=== PATIENT | male | born 1975 | race Caucasian/White ===

== ENCOUNTER 2016-06-07 12:20 | Emergency (ER) | payer MEDICARE ==
[~2016-06-07] VITALS: Ht 172.7 cm; Wt 86.4 kg
[~2016-06-07 12:20] MED LIST: CYMBALTA 20MG20 MG PO; PERCOCET 325 MG1 TA2 PO; SEROQUEL50 MG PO; ZOFRAN ODT8 MG PO
[2016-06-07 12:26] VITALS: TEMP 97.7
[2016-06-07 13:33] LABS: BASO # 0.2 (0.0-0.2); BASO % 1.4 % (0.0-2.0); EOS # 0.5 (0.0-0.7); EOS % 4.4 % (0-4.0); GRAN # 7.3 (1.4-6.5); GRAN % 68.6 % (42.2-75.2); HEMATOCRIT 40.5 % (42.0-52.0); LYMPH # 1.8 (1.2-3.4); LYMPH % 16.6 % (20.0-51.0); MEAN CELL VOLUME 96 fl (80.0-100.0); MEAN CORPUSCULAR HEMOGLOBIN 33 pg (27.0-31.0); MEAN CORPUSCULAR HGB CONC 35 g/dl (33.0-37.0); MEAN PLATELET VOLUME 9.9 fl (7.4-10.4); MONO # 0.9 (0.1-0.6); MONO % 8.7 % (1.7-9.3); PLATELET COUNT 415 K/mm3 (130-400); RED BLOOD COUNT 4.21 M/mm3 (4.20-5.60); REDCELL DISTRIBUTION WIDTH-CV 15.9 % (11.5-14.5); WHITE BLOOD COUNT 10.7 K/mm3 (4.8-10.8)
[2016-06-07 15:05] VITALS: BP 122/80; PULSE 78
[2016-06-07 15:11] LABS: ERYTHROCYTE SEDIMENTATION RATE 2 mm/hr (0-15)
== END 2016-06-07 15:07 | disposition home or self-care (01) ==
LOC: COL.ER 12:20
PROVIDERS: Physician Assistant
DX: G89.29 Other chronic pain (principal); M25.552 Pain in left hip
CPT/HCPCS: J1170; J2550

== ENCOUNTER 2016-07-04 09:00 | Emergency (ER) | payer MEDICARE ==
[~2016-07-04] VITALS: Ht 172.7 cm; Wt 84.1 kg
[2016-07-04 09:05] VITALS: BP 125/71; PULSE 91; TEMP 97.8
[2016-07-04] MEDS ORDERED: NORCO 325 MG-51 TAB PO ×2 (09:08→10:25)
[2016-07-04 10:07] LABS: BASO # 0.1 (0.0-0.2); BASO % 1.2 % (0.0-2.0); EOS # 0.4 (0.0-0.7); EOS % 3.6 % (0-4.0); GRAN # 5.4 (1.4-6.5); GRAN % 54.8 % (42.2-75.2); HEMATOCRIT 38.3 % (42.0-52.0); HEMOGLOBIN 13.2 g/dl (13.5-18.0); LYMPH # 3.2 (1.2-3.4); LYMPH % 32.7 % (20.0-51.0); MEAN CELL VOLUME 97 fl (80.0-100.0); MEAN CORPUSCULAR HEMOGLOBIN 33 pg (27.0-31.0); MEAN CORPUSCULAR HGB CONC 35 g/dl (33.0-37.0); MEAN PLATELET VOLUME 9.2 fl (7.4-10.4); MONO # 0.7 (0.1-0.6); MONO % 7.2 % (1.7-9.3); PLATELET COUNT 380 K/mm3 (130-400); RED BLOOD COUNT 3.97 M/mm3 (4.20-5.60); REDCELL DISTRIBUTION WIDTH-CV 15.3 % (11.5-14.5); WHITE BLOOD COUNT 9.9 K/mm3 (4.8-10.8)
[2016-07-04 10:17] LABS: ADJUSTED CALCIUM 9.2 mg/dL (8.4-10.2); ALANINE AMINOTRANSFERASE 30 U/L (21-72); ALBUMIN 4.1 gm/dL (3.5-5.0); ALKALINE PHOSPHATASE 81 U/L (50-136); ANION GAP 10 mmol/L (7-16); BILIRUBIN,TOTAL 0.6 mg/dL (0.0-1.0); BLOOD UREA NITROGEN 12 mg/dL (9-20); CALCIUM 9.3 mg/dL (8.4-10.2); CARBON DIOXIDE 25 mmol/L (22-30); CHLORIDE 104 mmol/L (98-107); CREATININE, serum 0.81 mg/dL (0.66-1.25); GLUCOSE 92 mg/dL (74-106); POTASSIUM 4.1 mmol/L (3.4-5.0); SODIUM 139 mmol/L (137-145)
[2016-07-04 10:20] LABS: ACETAMINOPHEN < 10 ug/mL (10-30); SALICYLATE < 1.0 mg/dL
== END 2016-07-04 10:56 | disposition home or self-care (01) ==
LOC: COL.ER 09:00
PROVIDERS: Emergency Medicine
DX: T40.2X1A Poisoning by other opioids, accidental (unintentional), initial encounter (principal); R11.10 Vomiting, unspecified